=== PATIENT | male | born 1955 | race Caucasian/White ===

== ENCOUNTER 2025-04-19 08:44 | Outpatient (CLI) | payer MEDICARE, OTHER | END 2025-04-19 08:45 | disposition home or self-care (01) | LOC: CSHSLEEP 08:44 | PROVIDERS: ATTEND Internal Medicine Critical Care Medicine | DX: G47.33 Obstructive sleep apnea (adult) (pediatric) (principal); I10 Essential (primary) hypertension; R09.02 Hypoxemia | CPT/HCPCS: 95811 ==